=== PATIENT | male | born 1960 | race Caucasian/White ===

== ENCOUNTER 2017-03-19 16:51 | Emergency (ER) | payer BC ==
--- NOTE | 2017-03-19 17:30 | ED CLINICAL REPORT ---
Clinical Report - Physicians/Mid Levels [facility] [address] [place] [address] 03/19/2017 16:54 Patient: LANDON LAFLEUR Time Seen: 16:57; initial patient contact. Arrived- By private vehicle. Historian- patient. HISTORY OF PRESENT ILLNESS Chief Complaint: BACK PAIN. Modifying factors- worsened by bending over and lifting. Relieved by remaining still. It is described as being mild and in the area of the right lower lumbar spine. The quality is noted to be aching. No radiation. Onset- about 2 days ago and it is still present. No bladder dysfunction, bowel dysfunction, sensory loss or motor loss. Patient denies injury to the head or neck. Similar symptoms previously: None. Recent medical care: Not recently seen/assessed. REVIEW OF SYSTEMS No fever, difficulty with urination, urinary frequency, abdominal pain or nausea. No vomiting or diarrhea. He has had toothache and chills. All systems otherwise negative, except as recorded above. PAST HISTORY Hypertension. ( diverticulitis , depression). SURGERY HX: Cholecystectomy. Hernia repair. Inguinal hernia repair. Left shoulder surger. SOCIAL HISTORY Never smoker. No alcohol use or drug use. ADDITIONAL NOTES The nursing notes have been reviewed. PHYSICAL EXAM Vital Signs: 03/19/2017 17:00 BP: 129/76. HR: 73. RR: 18. O2 saturation: 99%. Temp: 98.2 F. Pain level now: 8/10. Have been reviewed as normal. Appearance: Alert. No acute distress. ENT: Left lower second molar(s): (tender. No abscess or erythema). Neck: Normal inspection. Neck nontender. No lymphadenopathy. CVS: Heart sounds normal. No cardiac murmur. Respiratory: No respiratory distress. Breath sounds normal. Abdomen: Soft and nontender. Bowel sounds normal. No organomegaly. No mass. Back: Mild muscle spasm of the right posterior back. Mild soft tissue tenderness in the right lower lumbar area. Mildly limited ROM in the back- in the lumbar spine: decreased flexion and extension. No vertebral point tenderness. Neuro: Oriented X 3. Mood/affect normal. No motor deficit. No sensory deficit. Straight leg raising: negative on the right and negative on the left. PROGRESS AND PROCEDURES Disposition: Discharged home in good and improved condition. Condition: good. CLINICAL IMPRESSION Acute lumbar strain. Mild dental pain. INSTRUCTIONS Apply ice for 20 minutes four times a day until better. Don't apply ice directly to skin. Your Current Medications: CONTINUE TAKING THE FOLLOWING MEDICATIONS: Claritin Oral : 10 mg daily. Lipitor Oral : daily. Lisinopril Oral : daily. Paxil Oral : daily. Prescription Medications: Baclofen 20 mg: take 1 orally every 8 hours. Dispense twenty (20). No refills. Diclofenac 50 mg tablets: take 1 tablet orally every 8 hours as needed for pain or stiffness. Dispense thirty (30). No refill. Follow-up: Follow up with your doctor in about three days. Call for an appointment. Blood pressure screening was not performed during this visit because the patient has an active diagnosis of hypertension. (Electronically signed by Adam Fletcher Dr. 03/19/2017 17:41)
--- NOTE | 2017-03-19 17:30 | ED CLINICAL REPORT ---
Clinical Report - Physicians/Mid Levels [facility] [address] [place] [address] 03/19/2017 16:54 Patient: LANDON LAFLEUR Time Seen: 16:57; initial patient contact. Arrived- By private vehicle. Historian- patient. HISTORY OF PRESENT ILLNESS Chief Complaint: BACK PAIN. Modifying factors- worsened by bending over and lifting. Relieved by remaining still. It is described as being mild and in the area of the right lower lumbar spine. The quality is noted to be aching. No radiation. Onset- about 2 days ago and it is still present. No bladder dysfunction, bowel dysfunction, sensory loss or motor loss. Patient denies injury to the head or neck. Similar symptoms previously: None. Recent medical care: Not recently seen/assessed. REVIEW OF SYSTEMS No fever, difficulty with urination, urinary frequency, abdominal pain or nausea. No vomiting or diarrhea. He has had toothache and chills. All systems otherwise negative, except as recorded above. PAST HISTORY Hypertension. ( diverticulitis , depression). SURGERY HX: Cholecystectomy. Hernia repair. Inguinal hernia repair. Left shoulder surger. SOCIAL HISTORY Never smoker. No alcohol use or drug use. ADDITIONAL NOTES The nursing notes have been reviewed. PHYSICAL EXAM Vital Signs: 03/19/2017 17:00 BP: 129/76. HR: 73. RR: 18. O2 saturation: 99%. Temp: 98.2 F. Pain level now: 8/10. Have been reviewed as normal. Appearance: Alert. No acute distress. ENT: Left lower second molar(s): (tender. No abscess or erythema). Neck: Normal inspection. Neck nontender. No lymphadenopathy. CVS: Heart sounds normal. No cardiac murmur. Respiratory: No respiratory distress. Breath sounds normal. Abdomen: Soft and nontender. Bowel sounds normal. No organomegaly. No mass. Back: Mild muscle spasm of the right posterior back. Mild soft tissue tenderness in the right lower lumbar area. Mildly limited ROM in the back- in the lumbar spine: decreased flexion and extension. No vertebral point tenderness. Neuro: Oriented X 3. Mood/affect normal. No motor deficit. No sensory deficit. Straight leg raising: negative on the right and negative on the left. PROGRESS AND PROCEDURES Disposition: Discharged home in good and improved condition. Condition: good. CLINICAL IMPRESSION Acute lumbar strain. Mild dental pain. INSTRUCTIONS Apply ice for 20 minutes four times a day until better. Don't apply ice directly to skin. Your Current Medications: CONTINUE TAKING THE FOLLOWING MEDICATIONS: Claritin Oral : 10 mg daily. Lipitor Oral : daily. Lisinopril Oral : daily. Paxil Oral : daily. Prescription Medications: Baclofen 20 mg: take 1 orally every 8 hours. Dispense twenty (20). No refills. Diclofenac 50 mg tablets: take 1 tablet orally every 8 hours as needed for pain or stiffness. Dispense thirty (30). No refill. Follow-up: Follow up with your doctor in about three days. Call for an appointment. Blood pressure screening was not performed during this visit because the patient has an active diagnosis of hypertension. (Electronically signed by Adam Fletcher Dr. 03/19/2017 17:41)
--- NOTE | 2017-03-19 17:30 | ED ORDER SUMMARY ---
..... Patient: LANDON LAFLEUR OrderSheet [facility] VisitID: [id number] [address] [place] [address] 56y, M Registration Date/Time: 03/19/2017 ORDER SHEET Weight: 102.5 kg (stated) Allergies: No Known Drug Allergy GENERAL ORDERS: MEDICATION ORDERS: Toradol IM 60 mg (NOW) (17:22 03/19/2017 Junior Augustine) (Ack 17:28 DDean R.N.) (17:33 DDealj R.N.) IV FLUIDS: ORDER SHEET NOTES: [Electronically signed by Adam Fletcher Dr. (17:41 03/19/2017)] [Electronically signed by Jessica Queen R.N. (17:42 03/19/2017)] [Electronically locked/signed by Jessica Queen R.N. (17:42 03/19/2017)]
--- NOTE | 2017-03-19 17:30 | ED ORDER SUMMARY ---
..... Patient: LANDON LAFLEUR OrderSheet [facility] VisitID: [id number] [address] [place] [address] 56y, M Registration Date/Time: 03/19/2017 ORDER SHEET Weight: 102.5 kg (stated) Allergies: No Known Drug Allergy GENERAL ORDERS: MEDICATION ORDERS: Toradol IM 60 mg (NOW) (17:22 03/19/2017 Junior Augustine) (Ack 17:28 DDean R.N.) (17:33 DDealj R.N.) IV FLUIDS: ORDER SHEET NOTES: [Electronically signed by Adam Fletcher Dr. (17:41 03/19/2017)] [Electronically signed by Jessica Queen R.N. (17:42 03/19/2017)] [Electronically locked/signed by Jessica Queen R.N. (17:42 03/19/2017)]
--- NOTE | 2017-03-19 17:30 | ED NURSING NOTES ---
Clinical Report - Nurses [facility] [address] [place] [address] 03/19/2017 16:54 Patient: LANDON LAFLEUR TRIAGE Triage time 1700. Acuity: LEVEL 4. 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 Pt also c/o jaw/throat pain, has had chills and fever at home since yesterday. Pt also states he has some diverticulitis symptoms and has appt with surgeon ([facility]) on Wednesday). 17:00. --17:09 Jessica Queen R.N. 17:00 03/19/17. BP: 129/76. HR: 73. RR: 18. O2 saturation: 99%. Temp: 98.2 F. Pain level now: 8/10. Additional comments: 8=back, throat/jaw=2 . --17:09 Jessica Queen R.N. Weight: 102.5 kg stated. Height/Length: 71 inches Per Patient. BMI: 31.5. --17:05 Jessica Queen R.N. Medications Lipitor Oral, daily. --17:07 Jessica Queen R.N. Claritin Oral 10 mg, daily. Lisinopril Oral, daily. Paxil Oral, daily. --17:07 Jessica Queen R.N. Allergies No Known Drug Allergy. --17:07 Jessica Queen R.N. History Arrived by private vehicle. Historian: patient. Accompanied by family. Primary physician ([facility]). PAST MEDICAL HX: Hypertension. ( diverticulitis , depression). SURGERY HX: Cholecystectomy. Hernia repair. Inguinal hernia repair. Left shoulder surgery. SOCIAL HX: Never smoker. No alcohol use or drug use. --17:09 Jessica Queen R.N. Interventions ID band on patient. To treatment room. --17:09 Jessica Queen R.N. PHYSICAL ASSESSMENT 17:00. Ambulatory to room. Patient gowned. GENERAL / NEURO / PSYCH: Alert. Oriented X 4. Appears in no acute distress. HEENT: No facial asymmetry noted. RESPIRATORY: Respirations not labored. CVS: Capillary refill less than 2 seconds. SKIN: Skin is warm and dry. --17:10 Jessica Queen R.N. NURSING PROGRESS NOTES 17:00. Patient gowned. Head of bed elevated. Reassurance given. Patient identifiers checked. Call light placed in reach. Side rails up. Bed placed in lowest position. Patient ready for evaluation- chart flagged. --17:09 Jessica Queen R.N. 17:28 03/19/2017 Toradol (Ketorolac Tromethamine) IM 60 mg given. Given in the left ventral gluteus. Allergies verified and confirmed 5 rights. --17:33 Jessica Queen R.N. DISPOSITION / DISCHARGE 17:40. Condition at departure: unchanged and stable. No learning barriers present. Discharge instructions provided and reviewed with the patient. Reviewed medication(s) (baclofen, diclofenac). Treatments reviewed (ice, rest). Patient verbalized understanding. Written instructions provided in Polish. The patient was discharged home and accompanied by family. He left the Emergency Department ambulatory and via private vehicle. Patient driving. --17:42 Jessica Queen R.N. 17:39 03/19/17. BP: deferred. HR: deferred. RR: deferred. O2 saturation: deferred. Temp: deferred. Pain level now: 05/06. --17:42 Jessica Queen R.N. Locked/Released at 03/19/2017 17:42 by Jessica Queen R.N.
--- NOTE | 2017-03-19 17:30 | ED NURSING NOTES ---
Clinical Report - Nurses [facility] [address] [place] [address] 03/19/2017 16:54 Patient: LANDON LAFLEUR TRIAGE Triage time 1700. Acuity: LEVEL 4. 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 Pt also c/o jaw/throat pain, has had chills and fever at home since yesterday. Pt also states he has some diverticulitis symptoms and has appt with surgeon ([facility]) on Wednesday). 17:00. --17:09 Jessica Queen R.N. 17:00 03/19/17. BP: 129/76. HR: 73. RR: 18. O2 saturation: 99%. Temp: 98.2 F. Pain level now: 8/10. Additional comments: 8=back, throat/jaw=2 . --17:09 Jessica Queen R.N. Weight: 102.5 kg stated. Height/Length: 71 inches Per Patient. BMI: 31.5. --17:05 Jessica Queen R.N. Medications Lipitor Oral, daily. --17:07 Jessica Queen R.N. Claritin Oral 10 mg, daily. Lisinopril Oral, daily. Paxil Oral, daily. --17:07 Jessica Queen R.N. Allergies No Known Drug Allergy. --17:07 Jessica Queen R.N. History Arrived by private vehicle. Historian: patient. Accompanied by family. Primary physician ([facility]). PAST MEDICAL HX: Hypertension. ( diverticulitis , depression). SURGERY HX: Cholecystectomy. Hernia repair. Inguinal hernia repair. Left shoulder surgery. SOCIAL HX: Never smoker. No alcohol use or drug use. --17:09 Jessica Queen R.N. Interventions ID band on patient. To treatment room. --17:09 Jessica Queen R.N. PHYSICAL ASSESSMENT 17:00. Ambulatory to room. Patient gowned. GENERAL / NEURO / PSYCH: Alert. Oriented X 4. Appears in no acute distress. HEENT: No facial asymmetry noted. RESPIRATORY: Respirations not labored. CVS: Capillary refill less than 2 seconds. SKIN: Skin is warm and dry. --17:10 Jessica Queen R.N. NURSING PROGRESS NOTES 17:00. Patient gowned. Head of bed elevated. Reassurance given. Patient identifiers checked. Call light placed in reach. Side rails up. Bed placed in lowest position. Patient ready for evaluation- chart flagged. --17:09 Jessica Queen R.N. 17:28 03/19/2017 Toradol (Ketorolac Tromethamine) IM 60 mg given. Given in the left ventral gluteus. Allergies verified and confirmed 5 rights. --17:33 Jessica Queen R.N. DISPOSITION / DISCHARGE 17:40. Condition at departure: unchanged and stable. No learning barriers present. Discharge instructions provided and reviewed with the patient. Reviewed medication(s) (baclofen, diclofenac). Treatments reviewed (ice, rest). Patient verbalized understanding. Written instructions provided in Togolese. The patient was discharged home and accompanied by family. He left the Emergency Department ambulatory and via private vehicle. Patient driving. --17:42 Jessica Queen R.N. 17:39 03/19/17. BP: deferred. HR: deferred. RR: deferred. O2 saturation: deferred. Temp: deferred. Pain level now: 05/06. --17:42 Jessica Queen R.N. Locked/Released at 03/19/2017 17:42 by Jessica Queen R.N.
--- NOTE | 2017-03-19 17:43 | ED MAR SUMMARY ---
..... Medication Administration Record [facility] [address] [place] [address] Patient: LANDON LAFLEUR Visit ID: [id number] 56y, M Weight: 102.5 kg Height/Length: 71 in BMI: 31.5 ALLERGIES: No Known Drug Allergy Given 17:28 03/19/2017 BretJessica RClementeN. Medication Administered: TORADOL [IM] (KETOROLAC TROMETHAMINE), Dose: 60 mg IM. Medication Ordered: Toradol IM 60 mg (NOW).
--- NOTE | 2017-03-19 17:43 | ED MED RECONCILIATION SUMMARY ---
Patient: LANDON LAFLEUR Medication Reconciliation Report [facility] VisitID: [id number] [address] [place] [address] 56y, M Registration Date/Time: 03/19/2017 Weight: 102.5 kg Height/Length: 71 in. BMI: 31.5 ALLERGIES: No Known Drug Allergy The patient's Home Medications are listed below: CONTINUE TAKING THE FOLLOWING MEDICATIONS: Claritin Oral 10 mg, daily Lipitor Oral, daily Lisinopril Oral, daily Paxil Oral, daily The source(s) of the original Home Medication information: Not obtained. The following Medications were given to the patient in the Emergency Department: Toradol [IM] IM 60 mg, administered: 03/19/2017 5:28:00 PM The following Medications were prescribed to the patient: Baclofen 20 mg: take 1 orally every 8 hours. Dispense twenty (20). No refills. -- Adam Fletcher Dr. Diclofenac 50 mg tablets: take 1 tablet orally every 8 hours as needed for pain or stiffness. Dispense thirty (30). No refill. -- Adam Fletcher Dr.
--- NOTE | 2017-03-19 17:43 | ED MED RECONCILIATION SUMMARY ---
Patient: LANDON LAFLEUR Medication Reconciliation Report [facility] VisitID: [id number] [address] [place] [address] 56y, M Registration Date/Time: 03/19/2017 Weight: 102.5 kg Height/Length: 71 in. BMI: 31.5 ALLERGIES: No Known Drug Allergy The patient's Home Medications are listed below: CONTINUE TAKING THE FOLLOWING MEDICATIONS: Claritin Oral 10 mg, daily Lipitor Oral, daily Lisinopril Oral, daily Paxil Oral, daily The source(s) of the original Home Medication information: Not obtained. The following Medications were given to the patient in the Emergency Department: Toradol [IM] IM 60 mg, administered: 03/19/2017 5:28:00 PM The following Medications were prescribed to the patient: Baclofen 20 mg: take 1 orally every 8 hours. Dispense twenty (20). No refills. -- Adam Fletcher Dr. Diclofenac 50 mg tablets: take 1 tablet orally every 8 hours as needed for pain or stiffness. Dispense thirty (30). No refill. -- Adam Fletcher Dr.
--- NOTE | 2017-03-19 17:43 | ED DISCHARGE INSTRUCTIONS ---
Patient: LANDON LAFLEUR General Instructions [facility] VisitID: [id number] [address] [place] [address] 56y, M Registration Date/Time: 03/19/2017 Acute lumbar strain. Mild dental pain. INSTRUCTIONS Apply ice for 20 minutes four times a day until better. Don't apply ice directly to skin. Your Current Medications: CONTINUE TAKING THE FOLLOWING MEDICATIONS: Claritin Oral : 10 mg daily. Lipitor Oral : daily. Lisinopril Oral : daily. Paxil Oral : daily. Prescription Medications: Baclofen 20 mg: take 1 orally every 8 hours. Dispense twenty (20). No refills. Diclofenac 50 mg tablets: take 1 tablet orally every 8 hours as needed for pain or stiffness. Dispense thirty (30). No refill. Follow-up: Follow up with your doctor in about three days. Call for an appointment. Blood pressure screening was not performed during this visit because the patient has an active diagnosis of hypertension. ADDITIONAL INFORMATION Back Pain [Acute Or Chronic] Back pain is usually caused by an injury to the muscles or ligaments of the spine. Sometimes the disks that separate each bone in the spine may bulge and cause pain by pressing on a nearby nerve. Back pain may also appear after a sudden twisting/bending force (such as in a car accident), after a simple awkward movement, or lifting something heavy with poor body positioning. In either case, muscle spasm is often present and adds to the pain. Acute back pain usually gets better in one to two weeks. Back pain related to disk disease, arthritis in the spinal joints or spinal stenosis (narrowing of the spinal canal) can become chronic and last for months or years. Unless you had a physical injury (for example, a car accident or fall) X-rays are usually not ordered for the initial evaluation of back pain. If pain continues and does not respond to medical treatment, x-rays and other tests may be performed at a later time. Home Care: You may need to stay in bed the first few days. But, as soon as possible, begin sitting or walking to avoid problems with prolonged bed rest (muscle weakness, worsening back stiffness and pain, blood clots in the legs). When in bed, try to find a position of comfort. A firm mattress is best. Try lying flat on your back with pillows under your knees. You can also try lying on your side with your knees bent up towards your chest and a pillow between your knees. Avoid prolonged sitting. This puts more stress on the lower back than standing or walking. During the first two days after injury, apply an ICE PACK to the painful area for 20 minutes every 2-4 hours. This will reduce swelling and pain. HEAT (hot shower, hot bath or heating pad) works well for muscle spasm. You can start with ice, then switch to heat after two days. Some patients feel best alternating ice and heat treatments. Use the one method that feels the best to you. You may use acetaminophen (Tylenol) or ibuprofen (Motrin, Advil) to control pain, unless another pain medicine was prescribed. [NOTE: If you have chronic liver or kidney disease or ever had a stomach ulcer or GI bleeding, talk with your doctor before using these medicines.] Be aware of safe lifting methods and do not lift anything over 15 pounds until all the pain is gone. Follow Up with your doctor or this facility if your symptoms do not start to improve after one week. Physical therapy may be needed. [NOTE: If X-rays were taken, they will be reviewed by a radiologist. You will be notified of any new findings that may affect your care.] Get Prompt Medical Attention if any of the following occur: Pain becomes worse or spreads to your legs Weakness or numbness in one or both legs Loss of bowel or bladder control Numbness in the groin or genital area Dental Pain A crack or cavity in the tooth, which exposes the sensitive inner area of the tooth can cause tooth pain. An infection in the gum or the root of the tooth can cause pain and swelling. The pain is often made worse by drinking hot or cold fluids, or biting on hard foods. Pain may spread from the tooth to the ear or jaw on the same side. Home Care: Avoid hot and cold foods and liquids since your tooth may be sensitive to temperature changes. If your tooth is chipped or cracked, or if there is a large open cavity, apply OIL OF CLOVES (available [id number] in drug stores) directly to the tooth to reduce pain. Some pharmacies carry an [id number] "toothache kit." This contains a paste, which can be applied over the exposed tooth to decrease sensitivity. A cold pack on your jaw over the sore area may help reduce pain. You may use acetaminophen (Tylenol) or ibuprofen (Motrin, Advil) to control pain, unless another medicine was prescribed. [ NOTE: If you have chronic liver or kidney disease or ever had a stomach ulcer or GI bleeding, talk with your doctor before using these medicines.] If you have signs of an infection, an antibiotic will be given. Take it as directed. Follow-Up as directed with a dentist. Your pain may go away with the treatment given. However, only a dentist can fully evaluate and treat the cause and prevent the pain from coming back again. TOOTHACHE IS A SIGN OF DISEASE IN YOUR TOOTH AND SHOULD BE EXAMINED AND TREATED BY A DENTIST. Get Prompt Medical Attention if any of the following occur: Your face becomes swollen or red Pain worsens or spreads to the neck Fever over 100.4 F (38.0 C) Unusual drowsiness; headache or stiff neck; weakness or fainting Pus drains from the tooth Difficulty swallowing or breathing You have been given the following additional information: Back Pain (Acute Or Chronic) Dental Pain (Electronically signed by Adam Fletcher Dr. 03/19/2017 17:41)
--- NOTE | 2017-03-19 17:43 | ED MAR SUMMARY ---
..... Medication Administration Record [facility] [address] [place] [address] Patient: LANDON LAFLEUR Visit ID: [id number] 56y, M Weight: 102.5 kg Height/Length: 71 in BMI: 31.5 ALLERGIES: No Known Drug Allergy Given 17:28 03/19/2017 BretJessica RClementeN. Medication Administered: TORADOL [IM] (KETOROLAC TROMETHAMINE), Dose: 60 mg IM. Medication Ordered: Toradol IM 60 mg (NOW).
== END 2017-03-19 17:40 | disposition home or self-care (01) ==
LOC: ED SRH 16:51
DX: S39.012A Strain of muscle, fascia and tendon of lower back, initial encounter (principal); K08.89 Other specified disorders of teeth and supporting structures; X50.1XXA Overexertion from prolonged static or awkward postures, initial encounter; Y93.67 Activity, basketball; Y99.9 Unspecified external cause status; Y92.9 Unspecified place or not applicable; I10 Essential (primary) hypertension